=== PATIENT | female | born 1955 | race Caucasian/White ===

== ENCOUNTER 2022-05-06 12:57 | Outpatient (CLI) | payer OTHER | END 2022-05-06 13:21 | disposition home or self-care (01) | LOC: MRI 12:57 | DX: M25.562 Pain in left knee (principal) | CPT/HCPCS: 73721 ==

== ENCOUNTER 2024-12-24 07:44 | Day surgery (SDC) | payer OTHER ==
[2024-12-23 16:29] VITALS: BP 147/84
[~2024-12-24] VITALS: Ht 160 cm; Wt 73.0 kg
[~2024-12-24 07:44] MED LIST: ALTACE2.5 MG PO; BUSPIRONE HCL5 MG PO; LIPITOR20 MG PO; WELLBUTRIN XL300 MG PO
[2024-12-24] MEDS ORDERED: CEFAZOLIN SODIUM 1,000 MG VIAL ONE (13:28)
[2024-12-24] MEDS ORDERED: CHLORHEXIDINE GLUCONATE 120 ML BOTTLE TOP ONE (20:17)
[2024-12-25] MEDS ORDERED: MORPHINE SULFATE 4 MG/ML VIAL IV ONE (00:05)
== END 2024-12-25 01:05 | disposition home or self-care (01) ==
LOC: CIR.AMB 07:44
PROVIDERS: ATTEND Surgery
DX: C50.412 Malignant neoplasm of upper-outer quadrant of left female breast (principal); D48.61 Neoplasm of uncertain behavior of right breast; R92.1 Mammographic calcification found on diagnostic imaging of breast; N60.81 Other benign mammary dysplasias of right breast